=== PATIENT | male | born 1975 | race Caucasian/White ===

== ENCOUNTER 2018-08-14 07:19 | Emergency (ER) | payer BC ==
--- NOTE | 2018-08-14 07:30 | UC ---
Dental HPI - HPI Summary HPI Summary: 42 year old male with dental complaint. Approximately 2 days ago patient was eating chicken wings and a piece of his tooth came out on the right upper jaw. Since then he has had worsening tooth pain. He has had multiple dental abscesses in the past and this feels just like that. He will be following up with either [facility] immediately for further evaluation. He has had pain and tenderness of the tooth and gumline. He denies fevers. His blood sugars have been stable and his last hemoglobin A1c was 6.8. He has allergy to amoxicillin and previously tolerated clindamycin well. - History of Current Complaint Stated Complaint: DENTAL COMPLAINT Time Seen by Provider: 08/14/18 07:28 Hx Obtained From: Patient Onset/Duration: Gradual Onset Severity: Moderate - Allergies/Home Medications Allergies/Adverse Reactions: Allergies Allergy/AdvReac Type Severity Reaction Status Date / Time carisoprodol [From Soma] Allergy Itching Verified 08/14/18 07:31 codeine Allergy Nausea Verified 08/14/18 07:31 Penicillins Allergy Nausea Verified 08/14/18 07:31 Home Medications: Home Medications Extaza 1 tab PO BID 08/14/18 [History] PMH/Surg Hx/FS Hx/Imm Hx Previously Healthy: Yes Endocrine History: Diabetes, Dyslipidemia Cardiovascular History: Hypertension Other History Of: Negative For: HIV, Hepatitis B, Hepatitis C, Anticoagulant Therapy - Surgical History Surgical History: None - Family History Known Family History: Positive: None Family History: NON CONTRIBUTORY - Social History Occupation: Employed Full-time Alcohol Use: None Substance Use Type: None Smoking Status (MU): Smoker, Current Status Unknown Type: Cigars Amount Used/How Often: 1 every 2 days Have You Smoked in the Last Year: Yes - Immunization History Most Recent Influenza Vaccination: August 2014 Review of Systems ENT: Dental Pain Is Patient Immunocompromised?: No All Other Systems Reviewed And Are Negative: Yes Physical Exam Triage Information Reviewed: Yes Appearance: Well-Appearing, No Pain Distress, Well-Nourished Vital Signs Reviewed: Yes Eye Exam: Normal ENT Exam: Normal ENT: Positive: Dental tenderness Dental Exam: Normal Neck exam: Normal Neck: Positive: 1 Respiratory Exam: Normal Cardiovascular Exam: Normal Musculoskeletal Exam: Normal Neurological Exam: Normal Psychological Exam: Normal Skin Exam: Normal Dental Complaint Course/Dx - Course Course Of Treatment: treat as he has in the past and aware of SE of Abx and will f/u with dentist rogers . if sx worsen go to ED. - Differential Dx/Diagnosis Differential Diagnosis/Dx: Dental Abscess, Dental Caries, Fractured Tooth, Peridontic Disease, Peritonsillar Abcess Provider Diagnoses: dental abscess Discharge - Sign-Out/Discharge Documenting (check all that apply): Patient Departure All imaging exams completed and their final reports reviewed: No Studies - Discharge Plan Condition: Good Disposition: HOME Prescriptions: Clindamycin Cap(NF) [Clindamycin Cap 300 mg Cap(NF)] 300 mg PO Q6H 10 Days #40 cap Patient Education Materials: Dental Abscess (ED) Referrals: No Primary Care Phys,NOPCP [Primary Care Provider] - 1 Day (Please follow up with a dentist ) - Billing Disposition and Condition Condition: GOOD Disposition: Home Images Dental: 1 - dental tenderness. some gum swelling . no bleeding
[2018-08-14 07:39] VITALS: BP 140/77
== END 2018-08-14 08:35 | disposition home or self-care (01) ==
LOC: UCCORT 07:19
DX: K04.7 Periapical abscess without sinus (principal); Z88.5 Allergy status to narcotic agent; Z88.0 Allergy status to penicillin; Z88.8 Allergy status to other drugs, medicaments and biological substances; F17.290 Nicotine dependence, other tobacco product, uncomplicated
CPT/HCPCS: 99212; G0463

== ENCOUNTER 2019-11-21 16:41 | Emergency (ER) | payer BC ==
--- OUTSIDE RECORDS SUMMARY | 2019-11-21 17:20 | XMS REPORT | Continuity of Care Document ---
:1975 External Reference #:[id number] Author Name Santosh Fuentes DO MPH Address [address] [place] [address], [address] [place] [address] Care Team Providers Name Role Phone Raza Conway P.A. 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 Problems Active Problems Provider Date Type 2 diabetes mellitus Onset: 06/05/2016 Social History Type Date Description Comments Sex Unknown Cigars Former Cigar Smoker 6 Daily ETOH Use Denies alcohol use Tobacco Use Start: Unknown End: Unknown Patient is a former smoker Smoking Status Reviewed: 09/25/19 Patient is a former smoker Allergies, Adverse Reactions, Alerts Active Allergies Reaction Severity Comments Date Codeine Nausea and Vomiting 06/05/2016 Penicillin Contact dermatitis, swelling, sickness 06/05/2016 Soma Urticaria, swelling 06/05/2016 Medications Active Medications SIG Qnty Indications Ordering Date Provider Xtampza ER take one by mouth 60units Santosh Fuentes, 11/28/2018 27mg C12a every 12 hours as DO, MPH directed chronic pain. Oxycodone HCL si by mouth 120tabs Santosh Fuentes, 07/30/2018 20mg every 6 hours as DO, MPH Tablets directed chronic pain patient Cymbalta si by mouth 180caps Santosh Fuentes, 01/09/[address] every 12 hours as DO, MPH Part directed chronic pain patient, code d 3 month script Omeprazole 1 by mouth every Unknown 40mg day Capsules DR Metformin HCL 1 by mouth twice Unknown 1000mg daily Tablets Debi-D 12 Hour 1 by mouth daily Unknown Allergy& Congestion 60-120mg Tablets ER 12HR Levemir Flextouch 60 units Q hs Unknown 100Unit/ML Solution Pen-Inject Jardiance daily Unknown 25mg Tablets Atorvastatin Calcium Unknown 20mg Tablets Wellbutrin XL si by mouth Unknown 300mg every day as Tablets ER 24HR directed chronic pain patient Lisinopril Unknown 2.5mg Tablets Humulin R U-500 Unknown Kwikpen 500Unit/ML Solution Pen-Inject CBD Oil Unknown Immunizations Description No Information Available Vital Signs Date Vital Result Comment 09/25/2019 2:35pm BP Systolic 144 mmHg BP Diastolic 88 mmHg Heart Rate 112 /min Respiratory Rate 20 /min Height 71 inches 5'11" Weight 400.00 lb per patient Pain Level 7 Pain at this time. Pain Level With Medicine 7 on average with meds Pain Level Without Medicine 9 without meds BMI (Body Mass Index) 55.8 kg/m2 08/25/2019 3:22pm BP Systolic 136 mmHg BP Diastolic 84 mmHg Heart Rate 82 /min Respiratory Rate 20 /min Height 71 inches 5'11" Weight 378.00 lb Pain Level 5 Pain at this time. 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 R53.83 Other fatigue Office Visit 07/28/2019 10:30a Main Office as Santosh Fuentes G89.29 Other chronic Of 12/26/13 , MPH pain M54.16 Radiculopathy, lumbar region M54.5 Low back pain 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 Office Visit 06/22/2019 3:30p Main Office as Fuentes, Santosh, G89.29 Other chronic Of 12/26/13 DO, MPH pain M54.16 Radiculopathy, lumbar region M54.5 Low back pain 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 Office Visit 05/26/2019 3:00p Main Office as FuentesAris washburnph, G89.29 Other chronic Of 12/26/13 DO, MPH pain M54.16 Radiculopathy, lumbar region M54.5 Low back pain 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 Office Visit 04/27/2019 2:45p Main Office as Fuentes, Santosh, G89.29 Other chronic Of 12/26/13 DO, MPH pain M54.16 Radiculopathy, lumbar region 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 Assessments Date Code Description Provider 09/25/2019 G89.29 Other chronic pain Fuentes, Santosh, DO, MPH 09/25/2019 M54.16 Radiculopathy, lumbar region Fuentes, Santosh, DO, MPH 09/25/2019 M54.5 Low back pain Fuentes, Santosh, DO, MPH 09/25/2019 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 Fuentes, Santosh , DO, MPH 08/25/2019 G89.29 Other chronic pain Fuentes, Santosh, DO, MPH 08/25/2019 M54.16 Radiculopathy, lumbar region Fuentes, Santosh, DO, MPH 08/25/2019 M54.5 Low back pain Fuentes, Santosh, DO, MPH 08/25/2019 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 Fuentes, Santosh , DO, MPH 08/25/2019 R53.83 Other fatigue Fuentes, Santosh, DO, MPH 07/28/2019 G89.29 Other chronic pain Fuentes, Santosh, DO, MPH 07/28/2019 M54.16 Radiculopathy, lumbar region Fuentes, Santosh, DO, MPH 07/28/2019 M54.5 Low back pain Fuentes, Santosh, DO, MPH 07/28/2019 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 Fuentes, Santosh , DO, MPH 06/22/2019 G89.29 Other chronic pain Fuentes, Santosh, DO, MPH 06/22/2019 M54.16 Radiculopathy, lumbar region Fuentes, Santosh, DO, MPH 06/22/2019 M54.5 Low back pain Fuentes, Santosh, DO, MPH 06/22/2019 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 Fuentes, Santosh , DO, MPH 05/26/2019 G89.29 Other chronic pain Fuentes, Santosh, DO, MPH 05/26/2019 M54.16 Radiculopathy, lumbar region Fuentes, Santosh, DO, MPH 05/26/2019 M54.5 Low back pain Fuentes, Santosh, DO, MPH 05/26/2019 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 Fuentes, Santosh , DO, MPH 04/27/2019 G89.29 Other chronic pain Fuentes, Santosh, DO, MPH 04/27/2019 M54.16 Radiculopathy, lumbar region Fuentes, Santosh, DO, MPH 04/27/2019 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 Fuentes, Santosh , DO, MPH Plan of Treatment Future Appointment(s):10/19/2019 4:15 pm - FuentesSantosh washburn DO, MPH at Main Office as Of 12/26/1410 - FuentesAris washburnph, DO, MPHG89.29 Other chronic painComments:Chronic. Symptoms and complaints discussed and reviewed today. No significant changes in physical findings. Continue current medical pain management.M54.16 Radiculopathy, lumbar regionComments:Chronic. Symptoms and complaints discussed and reviewed today. No changes in physical findings; patient is stable on current medical therapy.M54.5 Low back painComments: Chronic. Symptoms and complaints discussed and reviewed today.No changes in physical findings. Patient is stable and comfortable when current medical therapy is rendered.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New Labs: Urine Drug Screen, Ordered: 09/25/19Comments:Urine drug screen sample taken today to monitor opiate use and to monitor use of illicit substances.Will discuss results at next appointment.The following tests were ordered:6 AM, AMPH , SUN, LONG, BUP, CARIS, COCM, ETG, FENT, MCSHSG, OPI, OXY, PCP, TAPEN, XTSY , ZOLP. A urine drug test (UDT) was ordered for this patient and collected on site today. Creatinine has been ordered as well for specimen validity, not for kidney function. Preliminary UDT results are not final and should not be used to determine patient care or plan of treatment. Initially a qualitative immunoassay screen will bedone. Any inconsistent or positive findings will be further tested with a more comprehensive quantitative confirmation LCMS study. It is part of the treatment process of prescribing controlled substances and is considered standard of care.AllComments:Continue current medical pain management ; injection therapy, osteopathic manipulation, PT / modalities, and consults as needed to manage chronic pain.Non - opioid pain management discussed and optionsdiscussed.Side effects discussed; anticipatory guidance given. Patient clearly understand and agree with all medical treatments and suggestions. All medicines prescribed are adequate and appropriate for this patient's complaint of pain, medical history, physical, and personal goals.Goals of Treatment are to provide adequate and appropriate multidisciplinary medical pain management to increase/ maintain patient's quality of life and functionality while maintaining satisfactory side effect profile andminimizing residential end-organ damage. Importance of regular nutrition throughout the day discussed.Activity as toleratedContinue with PCP Functional Status Description No Information Available Mental Status Description No Information Available Referrals Description No Information Available
--- OUTSIDE RECORDS SUMMARY | 2019-11-21 17:20 | XMS REPORT | Continuity of Care Document ---
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 10/10/2017 0.75mg/0.5ML 0.5 mL Solution Pen-Inject Invokana 1 by mouth every Unknown 100mg Tablets day Omeprazole 1 by mouth every Unknown 20mg day Capsules DR [place] Flextouch 300 unit/ml-150 Unknown units twice a 100Unit/ML Solution day Pen-Inject Xtampza ER Unknown 9mg C12a Oxycodone HCL 1 by mouth four Unknown 20mg times a day Tablets Cymbalta 1 by mouth every Unknown 30mg Caps DR day Part Humulin R Unknown 100Unit/ML Solution Januvia Unknown 25mg Tablets Immunizations Description No Information Available Vital Signs Date Vital Result Comment 10/29/2019 4:20pm Weight 414.00 lb Height 71 inches 5'11" BMI (Body Mass Index) 57.7 kg/m2 BP Systolic 154 mmHg BP Diastolic 87 mmHg Heart Rate 109 /min O2 % BldC Oximetry 94 % Body Temperature 97.5 F [place] Score 11 Pain Level 0 01/08/2019 3:33pm Weight 390.00 lb Height 71 inches 5'11" BMI (Body Mass Index) 54.4 kg/m2 BP Systolic 127 mmHg BP Diastolic 83 mmHg Heart Rate 106 /min O2 % BldC Oximetry 93 % Body Temperature 97.2 F Byars Score 1 Pain Level 0 Results Description No Information Available Procedures Description No Information Available Medical Devices Description No Information Available Encounters Description No Information Available Assessments Description No Information Available Plan of Treatment No Information Available Functional Status Description No Information Available Mental Status Description No Information Available Referrals Description No Information Available
--- OUTSIDE RECORDS SUMMARY | 2019-11-21 17:20 | XMS REPORT | Continuity of Care Document ---
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 No Information Available Social History Type Date Description Comments Sex Unknown Smokeless Tobacco Never Used Smokeless Tobacco ETOH Use Drinks Alcoholic Beverages Rarely Tobacco Use Start: Unknown End: Patient is a former smoker Recreational Drug Use Denies Drug Use Smoking Status Reviewed: 03/10/19 Patient is a former smoker Allergies, Adverse Reactions, Alerts Active Allergies Reaction Severity Comments Date Penicillin Acetaminophen / Aspirin / Caffeine / Codeine / Salicylamide Soma Medications Active Medications SIG Qnty Indications Ordering Date Provider Metformin HCL take one tablet by Unknown 500mg mouth bid Tablets Viagra take 1 tablet by mouth Unknown 100mg up to once daily 0.5-4 Tablets hours prior to intercourse mouth Omeprazole 1 by mouth every day Unknown 20mg Capsules DR Xtampza ER 1 tab po bid Unknown 27mg C12a Oxycodone HCL ER 1 tab 4 times a day Unknown prn 20mg Tab ER 12H Abuse-Det Jardiance TK 1 T PO D Unknown 25mg Tablets Humulin R U-500 Inject 40 Units Unknown Kwikpen Subcutaneously With 500Unit/ML Every Meal. MDD 120 Solution Pen-Inject Units Medications Administered in Office Medication SIG Qnty Indications Ordering Provider Date Betamethasone Acetate & Leonora Schmitz RPAC 11/04/2019 Sodium Phosphate 3 MG Of Each Injection Immunizations Description No Information Available Vital Signs Date Vital Result Comment 11/04/2019 2:52pm BP Systolic Sitting Left Arm 151 mmHg BP Diastolic Sitting Left Arm 86 mmHg Body Temperature 96.4 F Heart Rate 11 /min Respiratory Rate 20 /min Weight 412.00 lb O2 % BldC Oximetry 95 % 11/21/2017 9:34am BP Systolic Sitting Left Arm 120 mmHg BP Diastolic Sitting Left Arm 84 mmHg Heart Rate 104 /min Respiratory Rate 18 /min Height 71 inches 5'11" Weight 406.00 lb BMI (Body Mass Index) 56.6 kg/m2 BSA (Body Surface Area) 2.85 m2 [place] body weight in kilograms 78 kg Results Description No Information Available Procedures Date Code Description Status 11/04/2019 Aspiration/Injection joint Completed intermediate(wrist/ankle/elbow/olbursa Medical Devices Description No Information Available Encounters Type Date Location Provider Dx Diagnosis Office Visit 11/04/2019 Orthopaedic Office Leonora Schmitz M65.4 Radial styloid 3:00p GOLDIE Engel tenosynovitis [de Quervain] M25.532 Pain in left wrist Assessments Date Code Description Provider 11/04/2019 M65.4 Radial styloid tenosynovitis [Leonora Mariscal RPAC Quervain] 11/04/2019 M25.532 Pain in left wrist Leonora Schmitz RPAC Plan of Treatment Future Appointment(s):12/07/2019 3:15 pm - Leonora Schmitz RPAC at [facility]/14/2020 2:45 pm - Javid Oneil MD at [facility]11/ 2019 [facility] Radial styloid tenosynovitis [de Quervain] M25.532 Pain in left wrist Functional Status Description No Information Available Mental Status Description No Information Available Referrals Description No Information Available
--- OUTSIDE RECORDS SUMMARY | 2019-11-21 17:20 | XMS REPORT | Continuity of Care Document ---
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 Problems Description No Information Available Social History [...] Oximetry 94 % Body Temperature 97.5 F [place] Score 11 Pain Level 0 01/08/2019 3:33pm Weight 390.00 lb Height 71 inches 5'11" BMI (Body Mass Index) 54.4 kg/m2 BP Systolic 127 mmHg BP Diastolic 83 mmHg Heart Rate 106 /min O2 % BldC Oximetry 93 % Body Temperature 97.2 F [place] Score 1 Pain Level 0 Results Description No Information Available Procedures Description No Information Available Medical Devices Description No Information Available Encounters Type Date Location Provider Dx Diagnosis Office Visit 10/29/2019 Main Office Nichole Hernandez, G47.33 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
--- OUTSIDE RECORDS SUMMARY | 2019-11-21 17:20 | XMS REPORT | Continuity of Care Document ---
:1975 External Reference #:[id number] Author Name Santosh Fuentes DO MPH Address [address] [place] [address], [address] [place] [address] Care Team Providers Name Role Phone Raza Conway P.A. 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 Pain Level With Medicine 7 on average with meds Pain Level Without Medicine 9 without meds BMI (Body Mass Index) 55.8 kg/m2 09/25/2019 2:35pm BP Systolic 144 mmHg BP Diastolic 88 mmHg Heart Rate 112 /min Respiratory Rate 20 /min Height 71 inches 5'11" Weight 400.00 lb per patient Pain Level 7 Pain at this time. 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 Office Visit 08/25/2019 3:30p Main Office as Santosh Fuentes G89.29 Other chronic Of 12/26/13 , MPH pain M54.16 Radiculopathy, lumbar region M54.5 Low back pain Z79.891 senior living (current) use of opiate analgesic R53.83 Other fatigue Office Visit 07/28/2019 10:30a Main Office as Aris Fuentesph, G89.29 Other chronic Of 12/26/13 DO, MPH pain M54.16 Radiculopathy, lumbar region M54.5 Low back pain Z79.891 senior living (current) use of opiate analgesic Office Visit 06/22/2019 3:30p Main Office as FuentesSantosh washburn, G89.29 Other chronic Of 12/26/13 DO, MPH pain M54.16 Radiculopathy, lumbar region M54.5 Low back pain 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 Office Visit 05/26/2019 3:00p Main Office as FuentesSantosh washburn, G89.29 Other chronic Of 12/26/13 DO, MPH pain M54.16 Radiculopathy, lumbar region M54.5 Low back pain 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 Office Visit 04/27/2019 2:45p Main Office as FuentesSantosh washburn, G89.29 Other chronic Of 12/26/13 DO, MPH pain M54.16 Radiculopathy, lumbar region Z79.891 senior living (current) use of opiate analgesic Assessments Date Code Description Provider 10/19/2019 G89.29 Other chronic pain Fuentes, Santosh, DO, MPH 10/19/2019 M54.16 Radiculopathy, lumbar region Fuentes, Santosh, DO, MPH 10/19/2019 M54.5 Low back pain Feuntes, Santosh, DO, MPH 10/19/2019 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 Fuentes, Santosh , DO, MPH 09/25/2019 G89.29 Other chronic pain Fuentes, Santosh, DO, MPH 09/25/2019 M54.16 Radiculopathy, lumbar region Fuentes, Santosh, DO, MPH 09/25/2019 M54.5 Low back pain Fuentes, Santosh, DO, MPH 09/25/2019 Z79.891 senior living (current) use of opiate analgesic Fuentes, Santosh , DO, MPH 08/25/2019 G89.29 Other chronic pain Fuentes, Santosh, DO, MPH 08/25/2019 M54.16 Radiculopathy, lumbar region Fuentes, Santosh, DO, MPH 08/25/2019 M54.5 Low back pain Fuentes, Santosh, DO, MPH 08/25/2019 Z79.891 senior living (current) use of opiate analgesic Fuentes, Santosh , DO, MPH 08/25/2019 R53.83 Other fatigue Fuentes, Santosh, DO, MPH 07/28/2019 G89.29 Other chronic pain Fuentes, Santosh, DO, MPH 07/28/2019 M54.16 Radiculopathy, lumbar region Fuentes, Santosh, DO, MPH 07/28/2019 M54.5 Low back pain Fuentes, Santosh, DO, MPH 07/28/2019 Z79.891 senior living (current) use of opiate analgesic Fuentes, Santosh , DO, MPH 06/22/2019 G89.29 Other chronic pain Fuentes, Santosh, DO, MPH 06/22/2019 M54.16 Radiculopathy, lumbar region Fuentes, Santosh, DO, MPH 06/22/2019 M54.5 Low back pain Fuentes, Santosh, DO, MPH 06/22/2019 Z79.891 senior living (current) use of opiate analgesic Fuentes, Santosh , DO, MPH 05/26/2019 G89.29 Other chronic pain Fuentes, Santosh, DO, MPH 05/26/2019 M54.16 Radiculopathy, lumbar region Fuentes, Santosh, DO, MPH 05/26/2019 M54.5 Low back pain Fuentes, Santosh, DO, MPH 05/26/2019 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 Importance of regular nutrition throughout the day discussed.Activity as toleratedContinue with PCP Functional Status Description No Information Available Mental Status Description No Information Available Referrals Description No Information Available
[2019-11-21 17:36] VITALS: BP 131/73
--- NOTE | 2019-11-21 17:43 | UC ---
Throat Pain/Nasal Rashard HPI - HPI Summary HPI Summary: 44 yo male with a >3 week hx of sinus pressure and pain/post nasal drip and low energy no f/c rare cough - History of Current Complaint Chief Complaint: UCGeneralIllness Stated Complaint: SINUS COMPLAINT Hx Obtained From: Patient Onset/Duration: Gradual Onset, Lasting Weeks Severity: Moderate Pain Intensity: 0 Pain Scale Used: 0-10 Numeric Cough: Nonproductive Associated Signs & Symptoms: Positive: Sinus Discomfort, Nasal Discharge - Epiglottits Risk Factors Epiglottis Risk Factors: Negative - Allergies/Home Medications Allergies/Adverse Reactions: Allergies Allergy/AdvReac Type Severity Reaction Status Date / Time carisoprodol [From Soma] Allergy Itching Verified 11/21/19 17:36 codeine Allergy Nausea Verified 11/21/19 17:36 Penicillins Allergy Nausea Verified 11/21/19 17:36 Home Medications: Home Medications Atorvastatin* [Lipitor*] 40 mg PO QPM 11/21/19 [History Confirmed 11/21/19] Insulin Regular, Human [Humulin R U-500 Kwikpen] 60 unit SC BID 11/21/19 [ History Confirmed 11/21/19] Omeprazole 40 mg PO DAILY 11/21/19 [History Confirmed 11/21/19] Oxycodone Myristate [Xtampza ER] 27 mg PO BID 11/21/19 [History Confirmed ] PMH/Surg Hx/FS Hx/Imm Hx Previously Healthy: Yes Endocrine History: Diabetes, Dyslipidemia Cardiovascular History: Hypertension Other History Of: Negative For: HIV, Hepatitis B, Hepatitis C, Anticoagulant Therapy - Surgical History Surgical History: None - Family History Known Family History: Positive: Hypertension, Diabetes Family History: NON CONTRIBUTORY - Social History Alcohol Use: Rare Substance Use Type: None Smoking Status (MU): Smoker, Current Status Unknown Type: Cigars Amount Used/How Often: 1 every 2 days Have You Smoked in the Last Year: Yes - Immunization History Most Recent Influenza Vaccination: August 2014 Review of Systems All Other Systems Reviewed And Are Negative: Yes Constitutional: Positive: Fatigue Skin: Positive: Negative Eyes: Positive: Negative ENT: Positive: Nasal Discharge, Sinus Congestion, Sinus Pain/Tenderness Respiratory: Positive: Cough Cardiovascular: Positive: Negative Gastrointestinal: Positive: Negative Genitourinary: Positive: Negative Motor: Positive: Negative Neurovascular: Positive: Negative Musculoskeletal: Positive: Negative Neurological: Positive: Negative Psychological: Positive: Negative Physical Exam Triage Information Reviewed: Yes Appearance: Well-Appearing, No Pain Distress, Well-Nourished Vital Signs: Initial Vital Signs Temp 98.2 F 11/21/19 17:33 Pulse 103 11/21/19 17:33 Resp 18 11/21/19 17:33 BP 131/73 11/21/19 17:33 Pulse Ox 96 11/21/19 17:33 Vital Signs Reviewed: Yes Eyes: Positive: Conjunctiva Clear ENT: Positive: Hearing grossly normal, Nasal congestion, Nasal drainage, TMs normal, Sinus tenderness, Uvula midline. Negative: Tonsillar swelling, Tonsillar exudate, Trismus, Muffled voice, Hoarse voice Dental Exam: Other - poor dentition - no abscess Neck: Positive: Supple, Nontender, No Lymphadenopathy Respiratory: Positive: Lungs clear, Normal breath sounds, No respiratory distress, No accessory muscle use Cardiovascular: Positive: RRR, No Murmur Musculoskeletal: Positive: ROM Intact, No Edema Neurological: Positive: Alert Psychological Exam: Normal Skin Exam: Normal Throat Pain/Nasal Course/Dx - Differential Dx/Diagnosis Provider Diagnosis: Acute sinusitis Discharge ED - Sign-Out/Discharge Documenting (check all that apply): Patient Departure All imaging exams completed and their final reports reviewed: No Studies - Discharge Plan Condition: Stable Disposition: HOME Prescriptions: DOXYcycline CAP(*) [DOXYcycline 100MG CAP(*)] 100 mg PO BID #12 cap Fluticasone NASAL SPRAY 50MCG* [Flonase NASAL SPRAY 50MCG*] 2 spray BOTH NARES BID #1 btl Patient Education Materials: Sinusitis (ED) Referrals: Harsh Conway PA [Primary Care Provider] - 1 Week (if not better) - Billing Disposition and Condition Condition: STABLE Disposition: Home
[2019-11-21] MEDS ORDERED: DOXYcycline CAP(*) 100 MG PO ONE (17:49)
== END 2019-11-21 18:14 | disposition home or self-care (01) ==
LOC: UCCORT 16:41
DX: J01.90 Acute sinusitis, unspecified (principal); R53.83 Other fatigue; E11.9 Type 2 diabetes mellitus without complications; E78.5 Hyperlipidemia, unspecified; I10 Essential (primary) hypertension; F17.290 Nicotine dependence, other tobacco product, uncomplicated; Z79.4 Long term (current) use of insulin; Z79.899 Other long term (current) drug therapy
CPT/HCPCS: 99212; A9270-GY; G0463